=== PATIENT | female | born 1980 ===

== ENCOUNTER 2024-05-05 06:45 | Day surgery (SDC) | payer OTHER, SELFPAY ==
[2024-04-04 15:18] VITALS: BMI 22.0
[2024-04-25 09:36] VITALS: BMI 21.4
[2024-05-05 07:07] VITALS: BMI 21.4
[2024-05-05 07:11] VITALS: BP 139/85; PULSE 70; RESP 14; TEMP 36.7; O2SAT 100
--- NOTE | 2024-05-05 07:12 | WPDANESEPPF ---
Anes - Initial Pre Proc Eval Procedure: Operation Date: 05/05/24 08:30 Proposed Procedures p Diagnostic Colonoscopy - Timbo Ramey MD Date/Time: 05/05/24 07:12 Surgeon: Timbo Ramey MD Pre Op Diagnosis: Family History of Colon Cancer Patient Data Age: 43 Gender: F Height: 1.6 m Weight: 55.05 kg Allergies Allergy/AdvReac Type Severity Reaction Status Date / Time No Known Allergies Allergy Verified 05/05/24 07:04 Patient hx anesthesia problems: none Family hx anesthesia problems: none Results Review: All pre-operative results and documents have been reviewed as part of the pre-operative evaluation. [facility] Past Medical History Medical History (Updated 05/05/24 @ 07:12 by Reuben Correa MD) Healthy adult Social History Social History Smoking status: Never smoker Alcohol intake: current Substance use: never Substance use type: does not use Living arrangements: with family Anes - Eval Final PreProcedure Day of Procedure 05/05/24 07:12 Patient weight: normal Heart: regular rate and rhythm Lungs: clear to auscultation Airway: Mallampati scale class II Neurological: alert and oriented Last oral intake: >/= 8 hours ASA classification: I Emergent: no Anesthetic plan: proceed Anesthesia type and monitoring: general GIVS and standard monitoring Results Review: All pre-operative results and documents have been reviewed as part of the pre-operative evaluation. Informed Consent: The patient's anesthetic plan and its attendant risks and benefits were discussed with the patient/family/POA. Questions were solicited and answers provided to the satisfaction of the patient/family/POA.
--- NOTE | 2024-05-05 07:12 | PM.HPGS ---
History of Present Illness History of Present Illness Consent: Risks, benefits, and alternatives have been discussed and questions answered. Patient agrees to proceed with procedure. Chief complaint: Family History of Colon polyps Narrative: Gabi Fisher is a 43 year old female presents for screening colonoscopy. Patient reports that her current weight appetite and bowel movements are normal. She denies abdominal pain. Has had no bleeding. Family history is significant that her father had colon polyps. Her grandfather had colon cancer. Review of Systems Review of Systems: All systems reviewed & are unremarkable except as noted in HPI and below [facility] Past Medical History Medical History (Updated 05/05/24 @ 07:14 by Timbo Ramey MD) Healthy adult Social History Social History Smoking status: Never smoker Alcohol intake: current Substance use: never Substance use type: does not use Living arrangements: with family Meds Home Medications and Allergies Allergies Allergy/AdvReac Type Severity Reaction Status Date / Time No Known Allergies Allergy Verified 05/05/24 07:04 Exam Narrative: Physical exam reveals patient to be alert. Vital signs stable. HEENT exam is unremarkable. Patient is anicteric. Lungs are clear to auscultation and percussion. His without murmur or extra sounds. Abdomen bowel sounds are present soft nontender with no organomegaly. Digital and External rectal exam normal. Assessment and Plan Assessment and plan (1) Family history of colonic polyps: Code(s): Z83.719 - Family history of colon polyps, unspecified Status: Acute Assessment and Plan: Patient's father had colon polyps. Her grandfather had colon cancer.. Plan for screening colonoscopy to
[2024-05-05] MEDS: LACTATED RINGERS 1,000 ML 150 ML IV CONT (07:22)
[2024-05-05 08:07] VITALS: BP 110/62; PULSE 81; RESP 14; O2SAT 100
[2024-05-05 08:17] VITALS: BP 109/79; PULSE 79; RESP 16; O2SAT 100
[2024-05-05 08:27] VITALS: BP 123/79; PULSE 73; RESP 18; O2SAT 100
--- NOTE | 2024-05-05 08:37 | WPDANESPN ---
Anes - Prog Note Post-Op Date/Time: 05/05/24 08:37 Cardiovascular status: normal Respiratory status: normal Airway patency: baseline Mental status: baseline Post-Op hydration status: normal Vital Signs: Last Vital Signs Temp 36.7 C 05/05/24 07:11 Pulse 73 05/05/24 08:27 Resp 18 05/05/24 08:27 BP 123/79 05/05/24 08:27 Pulse Ox 100 05/05/24 08:27 O2 Del Method Room Air 05/05/24 08:27 Pain Score (VAS): 0/10 I/O: Intake & Output 05/04/24 05/05/24 05/05/24 23:59 07:59 15:59 Intake Total 350 Balance 350 Patient Feedback: Patient satisfied with anesthetic care.
== END 2024-05-05 08:37 | disposition home or self-care (01) ==
PROVIDERS: PCP Family Medicine; Visit Provider Internal Medicine Gastroenterology
PROC: 0DJD8ZZ Inspection of Lower Intestinal Tract, Via Natural or Artificial Opening Endoscopic (ICD-10-PCS; CPT 45378; principal; 2024-05-05 08:30)
DX: Z83.718 Family history of other colon polyps (principal)
CPT/HCPCS: 45378